=== PATIENT | male | born 1970 | race Caucasian/White ===

== ENCOUNTER 2017-11-20 18:38 | Observation (INO) ==
[2017-11-20] MEDS ORDERED: Isovue-370 500 ML INFUS..BTL IV ONE ×2 (18:45→21:30)
[2017-11-20] MEDS ORDERED: 0.9 % Sodium Chloride 1,000 ML IVC ONE (18:45)
[2017-11-20] MEDS ORDERED: *HR* Morphine 2 MG/ML SYRINGE IVP ONE (18:46)
[2017-11-20] MEDS ORDERED: Ondansetron 4 MG/2 ML VIAL IVP ONE (18:46)
--- NOTE | 2017-11-20 18:50 | Emergency Department Note ---
Disposition Clinical Impression: Acute chest pain, Pleuritis Disposition: Admitted As Inpatient Condition: Fair Instructions: Pleurisy (ED) Referrals: Vazquez Mcconnell MD [Primary Care Provider] - Forms: ED Satisfaction Letter Time of Disposition: 20:11 SOB HPI - General Chief Complaint: ED Shortness of Breath/Dyspnea Stated Complaint: Lethargic, chest pain, trouble breathing Time Seen by Provider: 11/20/17 18:40 Source: patient, EMS Mode of arrival: EMS Limitations: physical limitation Nursing Notes Reviewed: Yes Vital Signs Reviewed: Yes - History of Present Illness Patient arrives by EMS with a history of feeling weak and having acute onset of shortness of breath just prior to arrival. He states he is felt severe pain in his left chest which feels like "a beating". He states his shortness of breath because of the degree of pain with respiration. Said a feeling of chills but denies fevers. He denies cough. He had not been having worsening of his asthma or increased use of inhalers. Denies abdominal or back pain. He does note some increased lower extremity edema. He does have history of hypertension , elevated cholesterol and a family history of heart disease. He denies any personal history of coronary artery disease, congestive heart failure, diabetes , DVT, PE or smoking. He is one week status post an arthroscopic surgery on his right knee. He denies any increased pain or swelling to the right knee. His lower extremity edema has been symmetric. He was transported by EMS. They did send 2 EKGs with a first at 6:25 PM and the second at 6:33 PM. These demonstrated sinus rhythm with some left axis deviation. There are no acute ST or T-wave changes to suggest ischemia or infarction in either. This is on my interpretation. Pt Subjective Complaint: shortness of breath, pain with inspiration, chest pain Onset (ago): Just [employer] Context: other (Recent right knee surgery) Severity: moderate, severe Consistency/Duration: constant Improves with: nothing Worsens with: inspiration Known history of: asthma Associated symptoms: Reports: chest pain, pain with inspiration, lower extremity pain (Right knee pain, postop, not increased). Denies: fever, cough, wheezing, sputum production, orthopnea, polyuria, polydipsia, parasthesias, palpitations, hemoptysis, diaphoresis, nausea/vomiting, syncope, abdominal pain , rash Treatment prior to arrival: oxygen Cough present: No - Related Data Home oxygen amount: none Home Medications Medication Instructions Recorded Confirmed Albuterol Neb [Proventil Neb] 2.5 mg IH Q6HR PRN 11/24/14 11/20/17 Aspirin 81 mg PO DAILY 11/24/14 11/20/17 Cetirizine HCl [Zyrtec] 10 mg PO DAILY 11/24/14 11/20/17 Citalopram [CeleXA] 40 mg PO HS 11/24/14 11/20/17 Fluticasone/Salmeterol [Advair 1 each IH BID 11/24/14 11/20/17 250-50 Diskus] Losartan [Cozaar] 50 mg PO DAILY 11/24/14 11/20/17 Omeprazole [PriLOSEC] 40 mg PO DAILY 11/24/14 11/20/17 Pravastatin Sodium [Pravachol] 20 mg PO HS 11/24/14 11/20/17 Ranitidine HCl [Zantac] 150 mg PO BID 11/24/14 11/20/17 [place] Oil/[place]-3 Fatty Acids 1,000 mg PO DAILY 11/24/14 11/20/17 [Fish Oil 500 mg Softgel] Amitriptyline [Elavil] 25 mg PO HS PRN 10/30/17 11/20/17 Calcium Carb, Cit/Magnesium Ox 1 tab PO DAILY 10/30/17 11/20/17 [Calmag Thins Tablet] Cyclobenzaprine [Flexeril] 10 mg PO TID PRN 10/30/17 11/20/17 Diclofenac Sodium [Voltaren] 1 - 2 gm TP TID PRN 10/30/17 11/20/17 Furosemide [Lasix] 40 mg PO DAILY 10/30/17 11/20/17 Ibuprofen [Ibu] 400 mg PO BID PRN 10/30/17 11/20/17 Magnesium Hydroxide [Milk of 5 ml PO QID PRN 10/30/17 11/20/17 Magnesia] Polyethylene Glycol 3350 [MiraLAX] 1 packet PO DAILY PRN 10/30/17 11/20/17 Triamcinolone Acet 0.1% CRM 1 appl TP BID 10/30/17 11/20/17 [Kenalog] SUMAtriptan succinate [Imitrex] 50 mg PO DAILY PRN 11/03/17 11/20/17 Previous Rx's Medication Instructions Recorded Acetaminophen [Tylenol] 1,000 mg PO Q6HR PRN #90 tablet 10/30/17 Allergies Allergy/AdvReac Type Severity Reaction Status Date / Time lisinopril AdvReac Mild Cough Verified 11/20/17 18:40 All systems ED: reviewed and negative except as stated. Past Medical History - Past Medical History Attestation: Yes The following information was validated with the patient. Source: patient, nursing notes reviewed Medical history: Reports: asthma, GERD, hyperlipidemia, hypertension, liver disease, migraine, RA, other (Varicose veins, Venous insufficiency and chronic neck/back/hip pain). Denies: coronary artery disease, DVT, myocardial infarction, pulmonary embolus Surgical history: Reports: herniorrhaphy (Multiple), hip replacement (Bilateral) , other (Right knee arthroscopy, skin grafts right leg) Psychiatric history: Reports: anxiety, depression - Social History Smoking Status: Never smoker Smokeless Tobacco Status: No Alcohol use: Reports: none Drug use: Reports: none Physical Exam - General Limitations: physical limitation General appearance: alert, in distress - Head Head exam: atraumatic, normocephalic, normal inspection - Eye Eye exam: Present: normal appearance, PERRL, EOMI. Absent: conjunctival injection - ENT ENT exam: normal exam, normal oropharynx, mucous membranes moist - Neck Neck exam: Present: normal inspection, full ROM, trachea midline. Absent: lymphadenopathy - Chest Chest inspection: Present: normal inspection, symmetric chest wall rise - Respiratory Respiratory exam: Present: normal lung sounds bilaterally, respiratory distress , other (Patient is splinting his respirations.). Absent: wheezes, prolonged expiratory phase - Cardiovascular Cardiovascular exam: Present: regular rate, normal rhythm, normal heart sounds. Absent: tachycardia - Abdominal Exam Abdominal exam: Present: soft, Non-Tender, normal bowel sounds. Absent: tenderness, distention, guarding, rebound, rigidity - Extremities Exam Extremities exam: Present: normal inspection, full ROM, pedal edema (2+ bilaterally). Absent: tenderness, calf tenderness - Expanded Lower Extremity Exam Neurovascular/Tendon exam: Present: normal capillary refill. Absent: motor deficit, sensory deficit, tendon deficit Gait: not tested/not observed - Neurological Exam Neurological exam: Present: alert, oriented X3. Absent: motor sensory deficit - Psychiatric Psychiatric exam: Present: normal mood, flat affect - Skin Skin exam: Present: warm, dry, intact, normal color. Absent: cyanosis, diaphoresis, pallor Course Course Narrative: 2009: With return of all testing, care has been discussed with the patient and Dr. Armenta. Patient is still complaining of sharp left chest pain that makes it difficult for him to take a deep breath. Given his previous medical history I believe it would be prudent to have him in for observation and serial troponins. Dr. Armenta is agreeable with observation. Vital Signs Temperature 99.3 F 11/20/17 18:42 Pulse Rate 91 11/20/17 18:42 Respiratory Rate 18 11/20/17 18:42 Blood Pressure 158/85 11/20/17 18:42 O2 Sat by Pulse Oximetry 95 11/20/17 18:42 Temperature 99.3 F 11/20/17 18:42 Pulse Rate 85 11/20/17 19:50 Respiratory Rate 16 11/20/17 19:50 Blood Pressure 147/93 11/20/17 19:50 O2 Sat by Pulse Oximetry 97 11/20/17 19:50 Oxygen Delivery Oxygen Delivery Room Air Shortness of Breath/Dyspnea - Differential Diagnosis Likely: acute exacerbation of chronic obstructive airways disease, pneumonia, asthma with exacerbation, pulmonary embolism - Medical Records Medical records reviewed: Yes I reviewed the patient's medical records. - Lab Data Lab results reviewed: Yes I reviewed the patient's lab results. Result diagrams: 11/20/17 18:48 11/20/17 18:48 Lab Results 11/20/17 11/20/17 11/20/17 Range/Units 18:48 18:48 18:48 WBC 7.7 (4.3-11.1) K/mcL RBC 4.19 (4.19-5.50) M/mcL Hgb 12.5 L (12.9-16.9) g/dL Hct 36.2 L (37.5-50.1) % MCV 86.4 (83.0-100.0) fL MCH 29.8 (28.0-33.3) pg MCHC 34.5 (31.6-35.5) g/dL RDW 12.6 (11.5-14.5) % Plt Count 285 (140-400) K/mcL MPV 9.5 (9.4-12.4) fL Immature Gran % 0.1 (0-4) % Seg Neutrophils % 63.6 % Lymphocytes % 20.2 % Monocytes % 9.7 % Eosinophils % 5.6 % Basophils % 0.8 % Neutrophils # 4.9 (1.6-8.9) K/mcL Lymphocytes # 1.6 (0.6-4.6) K/mcL Monocytes # 0.8 (0.0-1.3) K/mcL Eosinophils # 0.4 (0.0-0.6) K/mcL Basophils # 0.1 (0.0-0.2) K/mcL PT 11.8 (9.4-12.1) Seconds INR 1.0 APTT 33.6 (26.0-36.0) Seconds Sodium 137 (136-145) mEq/L Potassium 3.7 (3.5-5.1) mEq/L Chloride 103 (98-107) mEq/L Carbon Dioxide 26 (23-29) mEq/L BUN 11 (6-20) mg/dL Creatinine 0.75 (0.70-1.30) mg/dL Est GFR ( Amer) > 60 (> 60) Est GFR (Non-Af Amer) > 60 (> 60) BUN/Creatinine Ratio 15 (6-26) Glucose 102 (70-105) mg/dL Calculated Osmolality 284 (280-300) Lactic Acid (0.5-2.2) mmol/L Calcium 8.9 (8.6-10.3) mg/dL Troponin I < 0.03 (< 0.04) ng/mL B-Natriuretic Peptide (Less than 100) pg/mL 11/20/17 11/20/17 Range/Units 18:48 18:48 WBC (4.3-11.1) K/mcL RBC (4.19-5.50) M/mcL Hgb (12.9-16.9) g/dL Hct (37.5-50.1) % MCV (83.0-100.0) fL MCH (28.0-33.3) pg MCHC (31.6-35.5) g/dL RDW (11.5-14.5) % Plt Count (140-400) K/mcL MPV (9.4-12.4) fL Immature Gran % (0-4) % Seg Neutrophils % % Lymphocytes % % Monocytes % % Eosinophils % % Basophils % % Neutrophils # (1.6-8.9) K/mcL Lymphocytes # (0.6-4.6) K/mcL Monocytes # (0.0-1.3) K/mcL Eosinophils # (0.0-0.6) K/mcL Basophils # (0.0-0.2) K/mcL PT (9.4-12.1) Seconds INR APTT (26.0-36.0) Seconds Sodium (136-145) mEq/L Potassium (3.5-5.1) mEq/L Chloride (98-107) mEq/L Carbon Dioxide (23-29) mEq/L BUN (6-20) mg/dL Creatinine (0.70-1.30) mg/dL Est GFR ( Amer) (> 60) Est GFR (Non-Af Amer) (> 60) BUN/Creatinine Ratio (6-26) Glucose (70-105) mg/dL Calculated Osmolality (280-300) Lactic Acid 1.4 (0.5-2.2) mmol/L Calcium (8.6-10.3) mg/dL Troponin I (< 0.04) ng/mL B-Natriuretic Peptide 13 (Less than 100) pg/mL - Radiology Data Radiology results reviewed: Yes I reviewed the patient's radiology results. CT PE study is performed. This does not demonstrate evidence for central pulmonary embolism, pneumonia, pneumothorax or abnormal cardiac silhouette. The pericardial effusion. No acute abnormality is seen. This is on my interpretation. Impressions Chest CTA 11/20/17 18:45 IMPRESSION: No evidence of pulmonary embolism or other acute process in the chest. D/ / Ej Vaughn MD / Ej Vaughn MD Interpreting Provider: Ej Vaughn MD - EKG Data EKG attestation: Yes I reviewed and interpreted this EKG. EKG shows normal: Reports: sinus rhythm, intervals, QRS complexes, ST-T waves Rate: Reports: normal (92) [place]/QRS: Reports: left axis deviation Interpretation: Reports: no acute changes, nonspecific ST-T wave changes
[2017-11-20 18:59] LABS: Basophils # 0.1 K/mcL (0.0-0.2); Basophils % 0.8 %; Eosinophils # 0.4 K/mcL (0.0-0.6); Eosinophils % 5.6 %; Hematocrit 36.2 % (37.5-50.1); Hemoglobin 12.5 g/dL (12.9-16.9); Immature Granulocytes % 0.1 % (0-4); Lymphocytes # 1.6 K/mcL (0.6-4.6); Lymphocytes % 20.2 %; Mean Corpuscular HGB Conc 34.5 g/dL (31.6-35.5); Mean Corpuscular Hemoglobin 29.8 pg (28.0-33.3); Mean Corpuscular Volume 86.4 fL (83.0-100.0); Mean Platelet Volume 9.5 fL (9.4-12.4); Monocytes # 0.8 K/mcL (0.0-1.3); Monocytes % 9.7 %; Neutrophils # 4.9 K/mcL (1.6-8.9); Platelet Count 285 K/mcL (140-400); Red Blood Count 4.19 M/mcL (4.19-5.50); Red Cell Distribution Width 12.6 % (11.5-14.5); Segmented Neutrophils % 63.6 %
[2017-11-20 19:06] LABS: Prothrombin Time 11.8 Seconds (9.4-12.1)
[2017-11-20 19:09] LABS: Activated Partial Thrombo Time 33.6 Seconds (26.0-36.0)
[2017-11-20 19:14] LABS: BUN/Creatinine Ratio 15 (6-26); Blood Urea Nitrogen 11 mg/dL (6-20); Calcium 8.9 mg/dL (8.6-10.3); Carbon Dioxide 26 mEq/L (23-29); Chloride 103 mEq/L (98-107); Glucose 102 mg/dL (70-105); Osmolality,Calculated 284 (280-300); Potassium 3.7 mEq/L (3.5-5.1); Sodium 137 mEq/L (136-145); eGFR For Non-African Americans > 60 (> 60)
[2017-11-20 19:22] LABS: Troponin I < 0.03 ng/mL (< 0.04)
[2017-11-20] MEDS ORDERED: Albuterol 2.5 MG/3 ML NEBULIZER IH PRN (21:30)
[2017-11-20] MEDS ORDERED: *HR* OxyCODONE Immed Rel 5 MG TABLET PO PRN (21:30)
[2017-11-20] MEDS ORDERED: SUMAtriptan succinate 50 MG TABLET PO PRN (21:30)
[2017-11-20] MEDS ORDERED: MOM Conc 10 ML UD.LIQ PO PRN (21:30)
[2017-11-20] MEDS ORDERED: Ibuprofen 400 MG TABLET PO PRN (21:30)
[2017-11-20] MEDS ORDERED: Naloxone 0.4 MG/ML INJ IVP PRN (21:30)
[2017-11-20] MEDS: Budesonide/Formoterol 80/4.5 MDI IH SCH ×2 (22:32→22:49)
[2017-11-20] MEDS: 0.9 % Sodium Chloride 1,000 ML IVC SCH (22:52)
[2017-11-20] MEDS: Famotidine 20 MG TABLET PO SCH (22:56)
[2017-11-20] MEDS: Triamcinolone Acet 0.1% CRM 15 GM TUBE TP SCH (22:57)
[2017-11-21] MEDS: 0.9 % Sodium Chloride 1,000 ML IVC SCH (06:06)
[2017-11-21] MEDS: Famotidine 20 MG TABLET PO SCH (07:37)
[2017-11-21] MEDS: Triamcinolone Acet 0.1% CRM 15 GM TUBE TP SCH (07:38)
[2017-11-21] MEDS ORDERED: CALCIUM CARB CIT PO SCH (09:00)
[2017-11-21] MEDS ORDERED: Aspirin 81 MG TAB.CHEW PO SCH (09:00)
[2017-11-21] MEDS ORDERED: MAGNESIUM OX PO SCH (09:00)
[2017-11-21] MEDS ORDERED: Loratadine 10 MG TABLET PO SCH (09:00)
[2017-11-21] MEDS ORDERED: Furosemide 40 MG TABLET PO SCH (09:00)
--- NOTE | 2017-11-21 10:11 | Internal Med History&Physical ---
Date of Encounter: 11/21/17 Time of Encounter: 09:30 Assessment and Plan (1) Chest pain Current visit: Yes Status: Acute Appears to be chest wall origin. Repeat cardiac enzymes were ordered through emergency room. Qualifiers: Chest pain type: unspecified Qualified Code(s): R07.9 - Chest pain, unspecified (2) Hypertension Current visit: No Status: Chronic Continue Cozaar. Qualifiers: Hypertension type: essential hypertension Qualified Code(s): I10 - Essential (primary) hypertension Internal Medicine - H&P: HPI Chief complaint: Chest discomfort, dyspnea, dizziness Admitted From: Emergency Dept Plans for Post Hospital Care: Home History of present illness: Mr. Dickey is a 47 year old male who came to emergency room stating he had developed dizziness described as vertigo earlier the day of admission. There was no nausea or vomiting. He reported he experienced some discomfort in his left chest and dyspnea intermittently over the past week. He was evaluated in emergency room and admitted to [facility] floor for ongoing care needs. He states his chest discomfort is slightly worse on coughing or deep inspiration. It in the left chest without significant radiation. Cardiovascular history is positive for hypertension but he denies NC heart failure DVT or pulmonary embolus. He states he does get some chest discomfort on exertion. He had negative stress test March 2011. Echocardiogram 2014 showed LVEF of 60-65% with moderate LV diastolic dysfunction reported. He had a "vein stripping" approximately 2 weeks ago at [facility]. Past Med Surg Social Fam HX - Past Medical History Medical history: asthma, GERD, hyperlipidemia, hypertension, liver disease, migraine, RA, other (Varicose veins, Venous insufficiency and chronic neck/back/ hip pain) Additional medical history: varicose veins. venous insufficiency. chronic neck /back/hip pain. asbestos exposure. shortness of breath. palpitations. fatty liver Psychiatric history: anxiety, depression - Past Surgical History Surgical History: herniorrhaphy (Multiple), hip replacement (Bilateral), other ( Right knee arthroscopy, skin grafts right leg) Additional surgical history: hernia repair 1988, 1989, 1995, 2005. skin grafting to left leg. right wrist ORIF 2004. bilateral greater saphenous vein ablation and phlebectomy. left total hip replacement 11/24/14. right total hip replacement 02/02/15 - Social History Smoking Status: Never smoker Smokeless Tobacco Status: No Alcohol use: none Drug use: none - Family History Father Adopted: No Family Member Ethnicity: Non- Living Status: Still Living Hx Family Cardiac Disorders: Yes Hx Family Respiratory Disorders: Yes Hx Family Cancer: No Hx Family GI Disorders: No Hx Family Endocrine Disorder: No Hx Family Neuromuscular Disorders: No Hx Family Neurologic Disorders: No Hx Family HEENT Disorders: No Hx Family Autoimmune Disorders: No Internal Medicine - H&P: Meds Albuterol Neb [Proventil Neb] 2.5 mg IH Q6HR PRN 11/24/14 [History] Aspirin 81 mg PO DAILY 11/24/14 [History] Cetirizine HCl [Zyrtec] 10 mg PO DAILY 11/24/14 [History] Citalopram [CeleXA] 40 mg PO HS 11/24/14 [History] Fluticasone/Salmeterol [Advair 250-50 Diskus] 1 each IH BID 11/24/14 [History] Losartan [Cozaar] 50 mg PO DAILY 11/24/14 [History] Omeprazole [PriLOSEC] 40 mg PO DAILY 11/24/14 [History] Pravastatin Sodium [Pravachol] 20 mg PO HS 11/24/14 [History] Ranitidine HCl [Zantac] 150 mg PO BID 11/24/14 [History] [place] Oil/[place]-3 Fatty Acids [Fish Oil 500 mg Softgel] 1,000 mg PO DAILY 11/24 [History] Acetaminophen [Tylenol] 1,000 mg PO Q6HR PRN #90 tablet 10/30/17 [Rx] Amitriptyline [Elavil] 25 mg PO HS PRN 10/30/17 [History] Calcium Carb, Cit/Magnesium Ox [Calmag Thins Tablet] 1 tab PO DAILY 10/30/17 [ History] Cyclobenzaprine [Flexeril] 10 mg PO TID PRN 10/30/17 [History] Diclofenac Sodium [Voltaren] 1 - 2 gm TP TID PRN 10/30/17 [History] Furosemide [Lasix] 40 mg PO DAILY 10/30/17 [History] Ibuprofen [Ibu] 400 mg PO BID PRN 10/30/17 [History] Magnesium Hydroxide [Milk of Magnesia] 5 ml PO QID PRN 10/30/17 [History] Polyethylene Glycol 3350 [MiraLAX] 1 packet PO DAILY PRN 10/30/17 [History] Triamcinolone Acet 0.1% CRM [Kenalog] 1 appl TP BID 10/30/17 [History] SUMAtriptan succinate [Imitrex] 50 mg PO DAILY PRN 11/03/17 [History] 3 Allergy/AdvReac Type Severity Reaction Status Date / Time lisinopril AdvReac Mild Cough Verified 11/20/17 18:40 All Systems PM: A 10-system review of systems was performed and is negative for pertinent findings except as documented above in the HPI. Review of systems: Gen.: He states his weight has been stable the past few months Cardiovascular: As per history of present illness Respiratory: He is a lifelong nonsmoker. He has history of asthma. GI: He has GERD. He denies disorders of his liver gallbladder or exocrine pancreas. : He denies hematuria dysuria or kidney stones Neurologic: He has rare migraine headaches. He reports he has an occasional "muscle twitch". Endocrine: He has hyperlipidemia. He denies diabetes or thyroid disease. Hematology/oncology: He denies blood disorders cancers or anemia Psychiatric: He has anxiety depression but denies other mental health issues. [place] skeletal: He has DJD but denies gout or other bone joint or muscle disorders. - Constitutional Vitals: Temp Pulse Resp BP Pulse Ox 98 F 79 15 131/65 97 11/21/17 07:30 11/21/17 07:30 11/21/17 07:30 11/21/17 07:30 11/21/17 07:30 Exam: Gen.: He is a well-developed well-nourished male who appears in no acute distress at present time. HEENT: Head is atraumatic and normocephalic. Eyes: EOMI. There is no scleral icterus. Mouth: Mucosa is moist. Neck: Supple and nontender. There is no thyromegaly or adenopathy noted. Heart: Regular without murmurs gallops or ectopics Chest: He has tenderness in his left costosternal joints and chest wall stating "that is the pain" when compressed. Lungs: No wheezes or crackles are heard. Abdomen: Soft and nontender. No masses or guarding are noted. Extremities: There is no cyanosis edema or clubbing noted. He has a well- healed scar in his right lower leg from [place]. He has minimal DJD changes of his hands. Neurologic: Mental status: He is talkative and a good historian. Cranial nerves : Smile is symmetric. Forehead wrinkles bilaterally. Tongue protrudes midline. EOMI. Motor: There is no pronator drift. Ankle flexion and extension strength against resistance is symmetric and normal. He is able to lift both legs off the bed. Cerebellar: Finger to nose is intact bilaterally. Skin: Warm and dry Internal Med - H&P Results - Labs CBC & Chem 7: 11/20/17 18:48 11/20/17 18:48 Labs: Cardiac Enzymes 11/21/17 11/21/17 Range/Units 01:10 06:39 Troponin I < 0.03 < 0.03 (< 0.04) ng/mL - Impressions ITS Impressions Head CT 11/21/17 08:09 IMPRESSION: No acute intracranial abnormality. D/ / Elliot Garrido MD / Elliot Garrido MD Interpreting Provider: Elliot Garrido MD - VTE Documentation of Mechanical Device: Graduated compression elastic hosiery
--- NOTE | 2017-11-21 10:25 | Discharge Summary ---
Date of Encounter: 11/21/17 Time of Encounter: 09:30 - Discharge Diagnosis (1) Chest pain Priority: Primary Status: Acute Qualifiers: Chest pain type: unspecified Qualified Code(s): R07.9 - Chest pain, unspecified (2) Hypertension Priority: Secondary Status: Chronic Qualifiers: Hypertension type: essential hypertension Qualified Code(s): I10 - Essential (primary) hypertension Hospital course: Mr. Dickey is a 47 year old male who came to emergency room stating he had developed dizziness described as vertigo earlier the day of admission. There was no nausea or vomiting. He reported he experienced some discomfort in his left chest and dyspnea intermittently over the past week. He was evaluated in emergency room and admitted to [facility] for ongoing care needs. Initial orders written by the emergency room physician. I saw him on November 21 and performed a history physical and discharge. Chest CTA in emergency room showed no evidence of PE or other acute pathology. Repeat cardiac enzymes show no evidence of myocardial damage. When I saw him the felt to be most likely of chest wall origin. I recommended he use OTC ibuprofen 3 times a day with meals the next 2 days and hold aspirin during that time. His PCP can further evaluate as needed. Head CT was ordered before I saw him when nursing staff reported they felt there was some neurologic deficit present. The head CT was unremarkable. When I examined him I did not detect neurologic deficit. He felt stable for discharge home. He will follow with his PCP Dr. Mcconnell within 1 week. - Time Spent with Patient Total time spent providing and/or coordinating discharge services: - Discharge Medications Home Medications: Albuterol Neb [Proventil Neb] 2.5 mg IH Q6HR PRN 11/24/14 [History] Aspirin 81 mg PO DAILY 11/24/14 [History] Cetirizine HCl [Zyrtec] 10 mg PO DAILY 11/24/14 [History] Citalopram [CeleXA] 40 mg PO HS 11/24/14 [History] Fluticasone/Salmeterol [Advair 250-50 Diskus] 1 each IH BID 11/24/14 [History] Losartan [Cozaar] 50 mg PO DAILY 11/24/14 [History] Omeprazole [PriLOSEC] 40 mg PO DAILY 11/24/14 [History] Pravastatin Sodium [Pravachol] 20 mg PO HS 11/24/14 [History] Ranitidine HCl [Zantac] 150 mg PO BID 11/24/14 [History] [place] Oil/[place]-3 Fatty Acids [Fish Oil 500 mg Softgel] 1,000 mg PO DAILY 11/24 [History] Acetaminophen [Tylenol] 1,000 mg PO Q6HR PRN #90 tablet 10/30/17 [Rx] Amitriptyline [Elavil] 25 mg PO HS PRN 10/30/17 [History] Calcium Carb, Cit/Magnesium Ox [Calmag Thins Tablet] 1 tab PO DAILY 10/30/17 [ History] Cyclobenzaprine [Flexeril] 10 mg PO TID PRN 10/30/17 [History] Diclofenac Sodium [Voltaren] 1 - 2 gm TP TID PRN 10/30/17 [History] Furosemide [Lasix] 40 mg PO DAILY 10/30/17 [History] Ibuprofen [Ibu] 400 mg PO BID PRN 10/30/17 [History] Magnesium Hydroxide [Milk of Magnesia] 5 ml PO QID PRN 10/30/17 [History] Polyethylene Glycol 3350 [MiraLAX] 1 packet PO DAILY PRN 10/30/17 [History] Triamcinolone Acet 0.1% CRM [Kenalog] 1 appl TP BID 10/30/17 [History] SUMAtriptan succinate [Imitrex] 50 mg PO DAILY PRN 11/03/17 [History] Allergies/Adverse Reactions: 3 Allergy/AdvReac Type Severity Reaction Status Date / Time lisinopril AdvReac Mild Cough Verified 11/20/17 18:40 Date of admission: 11/20/17 20:45 Primary care physician: Vazquez Mcconnell MD - Constitutional Vitals: Temp Pulse Resp BP Pulse Ox 98 F 79 15 131/65 97 11/21/17 07:30 11/21/17 07:30 11/21/17 07:30 11/21/17 07:30 11/21/17 07:30 - Patient Status Disposition: Home, Self-Care Condition: Fair - Discharge Instructions Follow Up With: Vazquez Mcconnell MD [Primary Care Provider] - 1 week - Diet and Activity Activity: resume usual activities as tolerated Diet: advance to your usual diet - VTE Documentation of Mechanical Device: Graduated compression elastic hosiery
[2017-11-21] MEDS: Budesonide/Formoterol 80/4.5 MDI IH SCH (10:26)
[2017-11-21 11:24] VITALS: BP 147/91
--- NOTE | 2017-11-24 10:15 | Electrocardiograph Report ---
[address] [place], [place] [address] Test Date: 2017-11-20 Pat Name: Dougie Dickey Department: [id number] Room: [facility] Gender: M [employer]er: [id number] : 1970 Requested By: Wei Arriaza Order Number: [id number] Reading MD: Ej Armstrong Measurements Intervals [place] Rate: 92 P: 45 NV: 187 QRS: -43 QRSD: 84 T: 34 QT: 335 QTc: 385 Interpretive Statements SINUS RHYTHM MARKED LEFT AXIS DEVIATION POSSIBLE INFERIOR MYOCARDIAL INFARCTION, PROBABLY OLD Electronically Signed On 11-24-2017 10:14:14 EDT by Ej Armstrong
== END 2017-11-21 12:30 | disposition home or self-care (01) ==
LOC: EMEROOPIK 18:38 → INPPIK 18:38
PROVIDERS: ADMIT Internal Medicine; ATTEND Internal Medicine